=== PATIENT | male | born 1955 | race Caucasian/White ===

== ENCOUNTER → 2021-03-26 14:08 | Outpatient (CLI) | payer MEDICARE, OTHER, SELFPAY ==
--- NOTE | 2021-03-26 | DI.MRI.S_ITS ---
PROCEDURE: MR LUMBAR SPINE WO CON INDICATIONS: Spinal stenosis, lumbar region TECHNIQUE: Noncontrast sagittal T1 spin echo and T2 fast echo, sagittal STIR, axial T1 and T2 fast spin echo through the lumbar spine. In cases with scoliosis, additional coronal T2 fast spin echo may be performed. COMPARISON: [facility] [place], CR, XR LUMBAR SPINE WITH OLBIQUES PLUS FLEXION EXTENSION, 03/12/2021, 10:43. [facility] Outside Film, CR, XR PELVIS WITH BILATERAL LATERAL HIPS, 03/11/2021, 13:13. FINDINGS: Image quality: Excellent. Alignment and Curvature: There is normal bony alignment. Bone: Susceptibility artifact noted in the visualized sacrum related to orthopedic screw placed for bilateral sacroiliac joint arthrodesis. Reactive endplate changes noted adjacent to the L5-S1 disc. No acute vertebral body compression fractures. Spinal Cord: Conus medullaris terminates at the L1 level. Visualized cord demonstrates normal signal and size. Paraspinous Soft Tissues: No paravertebral masses. T12-L1: Normal appearance. L1-L2: Loss of disc signal. Mild, diffuse disc bulge. Mild narrowing of the central canal. Mild bilateral neural foraminal narrowing. Fissure noted in the posterior annulus. L2-L3: Loss of disc signal and height. Moderate, diffuse disc bulge. Moderate narrowing of the central canal. Moderate bilateral neural foraminal narrowing. No neural compression. L3-L4: Loss of disc signal. Mild, diffuse disc bulge. Mild narrowing of the central canal. Small right foraminal disc extrusion. Extruded disc material causes severe foraminal stenosis and compression of the exiting right L3 nerve root. Mild left neural foraminal narrowing. L4-L5: Loss of disc signal. Mild, diffuse disc bulge. Mild bilateral facet hypertrophy. Mild to moderate narrowing of the central canal. Mild right and [id number] left neural foraminal narrowing. No neural compression. Fissure noted in the left foraminal annulus. L5-S1: Loss of disc signal and height. Mild, diffuse disc bulge. Moderate bilateral facet hypertrophy. No central stenosis. Moderate to severe bilateral neural foraminal narrowing. No neural compression. IMPRESSION: 1. Multilevel degenerative disc disease. 2. Multilevel facet arthropathy. 3. No severe central canal narrowing. 4. L3-L4 right foraminal disc extrusion causes severe right neural foraminal stenosis and compression of the exiting right L3 nerve root. Please correlate with clinical data. Dictated by: Beulah Graf MD, PhD on 03/26/2021 at 16:54 Approved by: Beulah Graf MD, PhD on 03/26/2021 at 16:59
== END ==
PROVIDERS: Referring Provider Physical Medicine & Rehabilitation Pain Medicine; Visit Provider Physical Medicine & Rehabilitation Pain Medicine
DX: M48.062 Spinal stenosis, lumbar region with neurogenic claudication (principal); M48.07 Spinal stenosis, lumbosacral region; M51.26 Other intervertebral disc displacement, lumbar region; M51.36 Other intervertebral disc degeneration, lumbar region; M51.37 Other intervertebral disc degeneration, lumbosacral region; M47.816 Spondylosis without myelopathy or radiculopathy, lumbar region; M47.817 Spondylosis without myelopathy or radiculopathy, lumbosacral region
CPT/HCPCS: 72148

== ENCOUNTER 2022-08-19 10:04 | Day surgery (SDC) | payer MEDICARE, OTHER, SELFPAY ==
--- NOTE | 2022-08-19 | PATH_ITS ---
[facility] Accession Number: [id number] No. of containers..01 Tissue . 01 Material submitted: . stomach - STOMACH BIOPSIES . 01 Clinical history: . R/O H. PYLORI . 01 Diagnosis: Stomach, Biopsies: Gastric body mucosa with no diagnostic abnormality. No evidence of Helicobacter organisms on H/E stain. Negative for intestinal metaplasia. Negative for dysplasia or malignancy. [facility] 08/25/2022 1451 Local . 01 Electronically signed: . Christiano Ignacio MD, PhD, Pathologist NPI- [id number] . 01 Gross description: . STOMACH BIOPSIES: Received in formalin is 1 fragment(s) of wolfe, soft tissue measuring 0.2 x 0.2 x 0.2 cm submitted entirely in 1 cassette(s) /SAM 08/20/2022 1940 Local . 01 Pathologist provided ICD-10: R13.10, K21.9 . 01 CPT . 012412 Specimen Comment: A courtesy copy of this report has been sent to [phone] Performed at: 01 [facility] [address] [place] [address] [address], [place], [place] [id number] MD Braulio Serrano MD Phone: [phone]
[2022-08-19 10:24] VITALS: BP 137/86; PULSE 65; RESP 16; TEMP 36.7; O2SAT 97
[2022-08-19 10:25] VITALS: BMI 22.2
--- NOTE | 2022-08-19 10:57 | PM.OP.EGD ---
Operative Date/Time/Diagnoses Date of procedure: 08/19/22 Pre-op diagnosis: See indication and findings Procedure & Clinicians Study performed: EGD Indications: Occasional dysphagia, GERD, abdominal discomfort Surgeon: Owen Brown Procedure Notes Procedure in detail: After informed consent was obtained the patient was placed left lateral decubitus position. The video upper scope was placed into the oropharynx and with the patient's help swallowed into the esophagus. The esophagus stomach and duodenum were carefully examined. On withdrawal, retroflexed view the GE junction was performed. The scope was removed. The patient tolerated procedure well. Blood loss none Complications none Sedation propofol Findings 1. Grade a LA classification esophagitis at the GE junction located at 37 cm 2. Wide open Schatzki's ring 3. 5 cm hiatal hernia without evidence of Kahlil lesions. Diaphragmatic hiatus at 42 cm 4. Patchy gastric erythema biopsies taken to rule out Helicobacter 5. Normal duodenal bulb and sweep Patient should stay on his pantoprazole as he is not completely healed yet. We will check biopsy results. He will not need routine follow-up per se but may need to take either an H2 laurence such as Pepcid as needed or proton pump inhibitor such as Protonix
--- NOTE | 2022-08-19 10:58 | PM.HP.1 ---
History of Present Illness History of Present Illness Date Patient Seen: 08/19/22 Chief complaint: EGD w/poss bx Narrative: Occasional dysphagia and GE reflux with abdominal discomfort Patient History Medical History (Updated 08/19/22 @ 09:58 by Dona Marroquin RN) Adenomatous colon polyp (~2020) HTN (hypertension) Kidney stones Multiple trauma (~2017) Family & Social History Tobacco & Substance use: Smoking Status Never smoker alcohol intake frequency holiday/special occasion Meds Home Medications and Allergies Home Medications Medication Instructions Recorded Confirmed Type lisinopril 10 mg tablet 10 mg PO DAILY 08/19/22 08/19/22 History Allergies Allergy/AdvReac Type Severity Reaction Status Date / Time No Known Drug Allergies Allergy Verified 08/19/22 10:29 Exam Vital Signs (past 8 hours): - 08/19/22 10:24 Temperature 98.1 F Pulse Rate 65 Respiratory Rate 16 Blood Pressure 137/86 Pulse Oximetry 97 Oxygen Delivery Method Room Air Oxygen Delivery Method Room Air Narrative Exam Narrative: Oropharynx free of lesions Chest clear to auscultation percussion Cardiac exam reveals no S3 or murmur Assessment & Plan Assessment & Plan narrative: Dysphagia reflux and abdominal discomfort. Rule out mechanical stricture versus inflammatory disease with EGD. Risks, benefits, alternatives have been explained. Time Spent With Patient Critical Care time: I spent a total of [] minutes of critical care time on this patient's care today; this time is exclusive of procedural time.
[2022-08-19 11:21] VITALS: BP 122/84; PULSE 76; RESP 16; TEMP 36.9; O2SAT 91
[2022-08-19 11:26] VITALS: BP 117/88; PULSE 79; RESP 16; O2SAT 92
[2022-08-19 11:31] VITALS: BP 133/75; PULSE 64; RESP 14; O2SAT 97
[2022-08-19 11:41] VITALS: BP 130/93; PULSE 65; RESP 12; TEMP 36.3; O2SAT 98
[2022-08-19 11:44] VITALS: BP 137/82; PULSE 64; RESP 16; O2SAT 95
== END 2022-08-19 12:04 | disposition home or self-care (01) ==
PROVIDERS: PCP Family Medicine; Referring Provider Internal Medicine Gastroenterology; Visit Provider Internal Medicine Gastroenterology
PROC: 0DJ08ZZ Inspection of Upper Intestinal Tract, Via Natural or Artificial Opening Endoscopic (ICD-10-PCS; CPT 43235; principal; 2022-08-19 11:00)
DX: K21.00 Gastro-esophageal reflux disease with esophagitis, without bleeding (principal); K44.9 Diaphragmatic hernia without obstruction or gangrene; K22.2 Esophageal obstruction
CPT/HCPCS: 43239; J2704